=== PATIENT | male | born 1945 | race Caucasian/White ===

== ENCOUNTER → 2017-11-15 | Outpatient (CLI) | payer OTHER ==
--- NOTE | 2017-11-15 11:45 | DIREP ---
PROCEDURE:US AORTA COMPLETE STUDY COMPARISON:None. INDICATIONS:HISTORY TOBACCO USE TECHNIQUE:Grayscale ultrasound was performed of the abdominal aorta. Spectral analysis and color-flow are also performed. FINDINGS: PROXIMAL AORTIC DIAMETER (cm):2.8 x 2.3 cm MID-AORTIC DIAMETER (cm):2.7 x 1.7 cm DISTAL AORTIC DIAMTER (cm):2.0 x 1.7 cm RIGHT COMMON ILIAC DIAMETER (cm):1.1 x 1.1 cm LEFT COMMON ILIAC DIAMETER (cm):1.2 x 1.1 cm VELOCITIES: PROXIMAL AORTA:106.7 cm/s MID AORTA:83.4 cm/s DISTAL AORTA:71.5 cm/s RIGHT COMMON ILIAC:127.7 cm/s LEFT COMMON ILIAC:113.6 cm/s CONCLUSION: No abdominal aortic aneurysm. Dictated by: VIKY Physician on 11/15/2017 at 10:59 AM laureen
== END | disposition home or self-care (01) ==
LOC: RAD 09:44
PROVIDERS: ATTEND Family Medicine
DX: Z13.89 Encounter for screening for other disorder (principal); Z72.0 Tobacco use
CPT/HCPCS: 76770